=== PATIENT | female | born 2005 | race Caucasian/White ===

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

== ENCOUNTER 2024-04-02 11:49 | Outpatient (CLI) | payer BC, SELFPAY ==
--- NOTE | 2024-04-02 12:15 | CRLHL7_ITS ---
For Patients: As a result of the Century Cures Act, medical imaging exams and procedure reports are released immediately into your electronic medical record. You may view this report before your referring provider. If you have questions, please contact your health care provider. INDICATION: DYSMENORRHEA COMPARISON: none TECHNIQUE: 2D conway scale and color Doppler images were acquired of the pelvis using a transabdominal and transvaginal approach. FINDINGS: Sonographic images demonstrate a normal size and smooth outer contour of the uterus. Uterus measures 7.5 cm in length by 4.4 cm in AP diameter by 5.8 cm in transverse dimension. The myometrium has a normal uniform echotexture. Normal position of the IUD within the endometrial canal. The endometrium is obscured but does not appear thickened. The right ovary measures 4.9 x 2.0 x 2.5 cm in size and the left ovary measures 3.5 x 2.4 x 2.6 cm. The ovaries demonstrate normal arterial and venous blood flow on color Doppler analysis. Simple left paraovarian cyst is present measuring 3.1 x 1.7 x 2.5 cm. IMPRESSION: Good position of the IUD within the endometrial canal. No uterine fibroid. Incidental left paraovarian cyst measuring 3.1 cm. Dictated by Kevin Adams MD @ 04/03/2024 6:34:36 AM (Electronically Signed)
== END 2024-04-02 11:50 | disposition home or self-care (01) ==
LOC: US 11:50
PROVIDERS: PCP Physician Assistant Medical; Visit Provider Physician Assistant
DX: N94.6 Dysmenorrhea, unspecified (principal); N83.202 Unspecified ovarian cyst, left side
CPT/HCPCS: 76830; 76856